=== PATIENT | female | born 1990 | race Caucasian/White ===

== ENCOUNTER 2016-07-23 13:12 | Emergency (ER) | payer OTHER ==
[~2016-07-23] VITALS: Ht 162.6 cm; Wt 48.1 kg
[2016-07-23 13:17] VITALS: TEMP 36.7; Ht 162.6 cm; Wt 48.1 kg
[2016-07-23] MEDS ORDERED: CLR10 PO (13:38)
--- NOTE | 2016-07-23 13:58 | EMERGENCY ROOM VISIT NOTE ---
History Report prepared by Darren: John Patricia Under the Supervision of: Dr. Gerry Denson M.D. First contact with patient: 13:32 Chief Complaint: ALLERGIC REACTION Stated Complaint: ITCHY,HARD TO BREATHE,SKIN BURNING History of Present Illness The patient is a 25 year old female who presents to the Emergency Room with complaints of an acute allergic reaction that started today while she was at work. The patient complains of itchy red skin. She also has some tightness in her chest and shortness of breath. The patient is not sure what she is having an allergic reaction to. She takes Joann daily, including this morning. The patient has allergies to dogs, certain feathers, and some medications. She denies the use of any new soaps or detergents. She notes that she started taking Flonase which is new for her. She has never followed up with an [employer]. Source of History: patient Onset: today Position: other (global) Quality: other (allergic reaction) Timing: other (acute) Associated Symptoms: + SOB, + chest pain Review of Systems All systems have been listed, reviewed, and are negative other than those previously mentioned. Please see Additional Medical History Sheet. Past Medical & Surgical Surgical Problems: (1) H/O: hysterectomy (2) S/P cholecystectomy Family History Cancer Gallbladder disease Social History Marital Status: in relationship Housing Status: lives with family Occupation Status: employed Current/Historical Medications Scheduled Loratadine (Claritin), 10 MG PO DAILY Allergies Coded Allergies: Codeine (Unverified Allergy, Intermediate, HIVES/DIZZY, 07/23/16) Meloxicam (Unverified Allergy, Intermediate, HIVES/DIZZY, 07/23/16) Sulfa Antibiotics (Unverified Allergy, Intermediate, HIVES/DIZZY, 07/23/16) Physical Exam Vital Signs Date Time Temp Pulse Resp B/P Pulse Ox O2 Delivery O2 Flow Rate FiO2 07/23/16 15:56 91 18 117/87 99 07/23/16 14:41 99 119/66 99 Room Air 07/23/16 14:28 99 Room Air 07/23/16 13:32 Room Air 98 07/23/16 13:29 108 07/23/16 13:29 92 131/87 98 Room Air 07/23/16 13:17 36.7 111 20 131/83 97 Room Air Physical Exam GENERAL: Patient awake, alert, oriented x 3. Patient follows commands. Patient does not appear toxic. Patient is adequately hydrated and well- nourished. SKIN: Skin is mildly erythematous and blanching. No urticaria. HEENT: Normal head, pupils equal, reactive to light and accommodation. Ears normal. Oral cavity and posterior pharynx appear normal. Uvula and tongue are not swollen. Neck: Without adenopathy, no neck vein distention. LUNGS: Wheezes noted bilaterally. HEART: No murmurs. No gallops. No rubs ABDOMEN: Soft, nontender. EXTREMITIES: No signs of trauma or infection. NEUROLOGIC: Cranial nerves II-XII within normal limits. No gross motor sensory function deficits. Medical Decision & Procedures Medications Administered Medications (Trade) Dose Ordered Sig/[place] Route Start Time Stop Time Status Last Admin Dose Admin Diphenhydramine HCl (Benadryl Cap) 50 mg NOW ONCE PO 07/23/16 14:30 07/23/16 14:31 DC 07/23/16 14:28 50 MG Albuterol (Ventolin Hfa Inhaler) 2 puffs NOW STAT INH 07/23/16 14:21 07/23/16 14:23 DC 07/23/16 14:27 2 PUFFS ED Course 1335: Past medical records reviewed. The patient was evaluated in room A2. A complete history and physical examination was performed. 1421: Albuterol 2 puffs INH. 1430: Benadryl 50 mg PO. 1535: The patient is feeling much better and is ready to go home. She is not wheezing at this time. Medical Decision Differential diagnosis includes allergic reaction with multiple possible allergens. The patient is here with some allergic symptoms but no anaphylaxis. The patient was given Benadryl and a Ventolin inhaler. She was observed and ultimately felt significantly better. The specific allergen causing her symptoms remains undetermined. The patient was encouraged to follow-up with an claims specialist. Impression Primary Impression: Allergic reaction Scribe Attestation The scribe's documentation has been prepared under my direction and personally reviewed by me in its entirety. I confirm that the note above accurately reflects all work, treatment, procedures, and medical decision making performed by me. Departure Information Dispostion Home / Self-Care Referrals Mumtaz Hoover D.O. (PCP) Forms HOME CARE DOCUMENTATION FORM, IMPORTANT VISIT INFORMATION, Work Instructions Patient Instructions ED Allergic Reaction General Other, My [facility] Additional Instructions 50 mg of Benadryl every 6 hours as needed for allergic symptoms. 2 puffs of Ventolin inhaler every 2-4 hours as needed for chest congestion/ wheezing. Follow-up with an claims specialist as soon as possible. Follow-up with your family physician. Off work today.
[2016-07-23] MEDS ORDERED: ALBUTEROL HFA 8 GM INHALER INH STA (14:21)
[2016-07-23 14:28] VITALS: O2SAT 99
[2016-07-23 15:56] VITALS: BP 117/87; PULSE 91; O2SAT 99
== END 2016-07-23 15:58 | disposition home or self-care (01) ==
LOC: C.EDB 13:14 → C.EDA 15:58
DX: T78.40XA Allergy, unspecified, initial encounter (principal); X58.XXXA Exposure to other specified factors, initial encounter; Y92.89 Other specified places as the place of occurrence of the external cause; Z90.710 Acquired absence of both cervix and uterus; Z90.49 Acquired absence of other specified parts of digestive tract; Z79.899 Other long term (current) drug therapy; Z88.2 Allergy status to sulfonamides; Z88.5 Allergy status to narcotic agent; Z88.8 Allergy status to other drugs, medicaments and biological substances; Z80.9 Family history of malignant neoplasm, unspecified; Z83.79 Family history of other diseases of the digestive system

== ENCOUNTER 2017-01-06 08:12 | Emergency (ER) | payer OTHER ==
[~2017-01-06] VITALS: Ht 162.6 cm; Wt 45.8 kg
[~2017-01-06 08:12] MED LIST: CLR10 PO
[2017-01-06 08:19] VITALS: TEMP 36.7; Ht 162.6 cm; Wt 45.8 kg
[2017-01-06] MEDS ORDERED: METHYLPREDNISOLONE 125 MG VIAL IV STA (08:29)
[2017-01-06] MEDS ORDERED: ALBUT/IPRATROP 3MG/0.5MG NEB 3 ML VIAL INH ONE (08:30)
[2017-01-06] MEDS ORDERED: SODIUM CHLORIDE 0.9% 1000ML 1,000 ML IV STA (08:31)
--- NOTE | 2017-01-06 08:34 | EMERGENCY ROOM VISIT NOTE ---
History Report prepared by Darren: Nehal Brand Under the Supervision of: Dr. Jose David Betts M.D. First contact with patient: 08:24 Chief Complaint: RESPIRATORY PROBLEMS Stated Complaint: TROUBLE BREATHING History of Present Illness The patient is a 26 year old female who presents to the Emergency Room with complaints of constant respiratory problems for the past week. The patient was diagnosed with an URI and is currently on clarithromycin and Tessalon Perles. She was told that she could return to work today. The patient went to work this morning and became extremely short of breath, lightheaded, and dizzy. She felt as though she could not breathe. She denies cough and LOC. She uses an inhaler for her severe allergies. She rates her pain as a 6/10 in severity. Source of History: patient Onset: 1 week ago Position: chest (respiratory) Symptom Intensity: 6/10 Timing: constant Associated Symptoms: + SOB, No LOC, No cough Note: Pt notes lightheadedness and dizziness. Review of Systems See HPI for pertinent positives & negatives. A total of 10 systems reviewed and were otherwise negative. Past Medical & Surgical Surgical Problems: (1) H/O: hysterectomy (2) S/P cholecystectomy Family History Cancer Gallbladder disease Social History Smoking Status: Former Smoker Marital Status: in relationship Housing Status: lives with family Occupation Status: employed Current/Historical Medications Scheduled Azithromycin (Zithromax), 500 MG PO Q12 Prednisone (Prednisone Tab), 0 PO DAILY Scheduled PRN Benzonatate (Tessalon Perles), 100 MG PO TID PRN for Cough Allergies Coded Allergies: Codeine (Unverified Allergy, Intermediate, HIVES/DIZZY, 07/23/16) Meloxicam (Unverified Allergy, Intermediate, HIVES/DIZZY, 07/23/16) Sulfa Antibiotics (Unverified Allergy, Intermediate, HIVES/DIZZY, 07/23/16) Physical Exam Vital Signs Date Time Temp Pulse Resp B/P (MAP) Pulse Ox O2 Delivery O2 Flow Rate FiO2 01/06/17 10:36 110 20 107/65 100 01/06/17 09:08 95 Room Air 01/06/17 09:08 95 Room Air 01/06/17 09:05 100 01/06/17 08:57 88 12 97 Room Air 01/06/17 08:22 97 Room Air 01/06/17 08:19 36.7 102 17 121/68 98 Room Air Physical Exam GENERAL: Patient is a healthy-appearing well-nourished 26 year old female. HEAD: Normocephalic atraumatic EYES: Ocular movements intact pupils equal and react to light OROPHARYNX mucous membranes are moist no exudates present no erythema or edema present NECK: Supple no nuchal rigidity CHEST: Good equal expansion LUNGS: Bilateral wheezing CARDIAC: Normal S1 and S2 ABDOMEN: Soft nontender no guarding BACK: No CVA tenderness EXTREMITIES: No pain upon palpation normal muscle strength in all groups no clubbing cyanosis or edema NEURO: Patient is following commands and answering questions appropriately. Alert and oriented x3 Cranial Nerves 2-12 grossly intact Medical Decision & Procedures ER Provider Diagnostic Interpretation: Radiology results as stated below per my review and radiologist interpretation: CHEST ONE VIEW PORTABLE HISTORY: 26 years-old Female Pt c/o SOB acute shortness of breath. Initial exam. COMPARISON: None available. TECHNIQUE: Portable upright AP view of the chest FINDINGS: The cardiomediastinal and hilar silhouettes are within normal limits. There is no pneumothorax, pleural effusion or focal airspace consolidation. No overt pulmonary edema. Bones of the chest are grossly intact. IMPRESSION: No acute cardiopulmonary process. The above report was generated using voice recognition software. It may contain grammatical, syntax or spelling errors. Electronically signed by: Ebenezer Terrell M.D. 01/06/2017 9:40 AM Dictated Date/Time: 01/06/2017 9:38 AM Laboratory Results 01/06/17 08:40 Red Blood Count 4.52, Mean Corpuscular Volume 91.4, Mean Corpuscular Hemoglobin 32.1, Mean Corpuscular Hemoglobin Concent 35.1, Mean Platelet Volume 9.0, Neutrophils (%) (Auto) 64.4, Lymphocytes (%) (Auto) 26.7, Monocytes (%) (Auto) 6.8, Eosinophils (%) (Auto) 1.6, Basophils (%) (Auto) 0.1, Neutrophils # (Auto) 4.38, Lymphocytes # (Auto) 1.82, Monocytes # (Auto) 0.46, Eosinophils # (Auto) 0.11, Basophils # (Auto) 0.01 01/06/17 08:40 Test 01/06/17 08:40 01/06/17 09:14 White Blood Count 6.81 K/uL (4.8-10.8) Red Blood Count 4.52 M/uL (4.2-5.4) Hemoglobin 14.5 g/dL (12.0-16.0) Hematocrit 41.3 % (37-47) Mean Corpuscular Volume 91.4 fL (80-100) Mean Corpuscular Hemoglobin 32.1 pg (25-34) Mean Corpuscular Hemoglobin Concent 35.1 g/dl (32-36) Platelet Count 238 K/uL (130-400) Mean Platelet Volume 9.0 fL (7.4-10.4) Neutrophils (%) (Auto) 64.4 % Lymphocytes (%) (Auto) 26.7 % Monocytes (%) (Auto) 6.8 % Eosinophils (%) (Auto) 1.6 % Basophils (%) (Auto) 0.1 % Neutrophils # (Auto) 4.38 K/uL (1.4-6.5) Lymphocytes # (Auto) 1.82 K/uL (1.2-3.4) Monocytes # (Auto) 0.46 K/uL (0.11-0.59) Eosinophils # (Auto) 0.11 K/uL (0-0.5) Basophils # (Auto) 0.01 K/uL (0-0.2) RDW Standard Deviation 40.5 fL (36.4-46.3) RDW Coefficient of Variation 12.0 % (11.5-14.5) Immature Granulocyte % (Auto) 0.4 % Immature Granulocyte # (Auto) 0.03 K/uL (0.00-0.02) Anion Gap 3.0 mmol/L (3-11) Est Creatinine Clear Calc Drug Dose 72.1 ml/min Estimated GFR () 109.6 Estimated GFR (Non- 94.6 BUN/Creatinine Ratio 10.2 (10-20) Calcium Level 9.4 mg/dl (8.5-10.1) Total Bilirubin 0.4 mg/dl (0.2-1) Aspartate Amino Transf (AST/SGOT) 17 U/L (15-37) Alanine Aminotransferase (ALT/SGPT) 18 U/L (12-78) Alkaline Phosphatase 62 U/L (45-117) Total Protein 7.3 gm/dl (6.4-8.2) Albumin 4.0 gm/dl (3.4-5.0) Globulin 3.3 gm/dl (2.5-4.0) Albumin/Globulin Ratio 1.2 (0.9-2) Influenza Type A (RT-PCR) Neg for Influ A (NEG) Influenza Type A Antigen Neg for Influ A (NEG) Influenza Type B Antigen Neg for Influ B (NEG) Influenza Type B (RT-PCR) Neg for Influ B (NEG) Labs reviewed by ED physician. Medications Administered Medications (Trade) Dose Ordered Sig/[place] Route Start Time Stop Time Status Last Admin Dose Admin Albuterol/ Ipratropium (Duoneb) 12 ml ONE ONCE INH 01/06/17 08:30 01/06/17 08:31 DC 01/06/17 08:56 12 ML Methylprednisolone Sodium Succinate (Solu-Medrol IV) 125 mg NOW STAT IV 01/06/17 08:29 01/06/17 08:31 DC 01/06/17 09:07 125 MG Sodium Chloride 1,000 ml @ 999 mls/hr Q1H1M STAT IV 01/06/17 08:31 01/06/17 09:31 DC 01/06/17 09:07 999 MLS/HR ECG Indication: SOB/dyspnea Rate (beats per minute): 88 Rhythm: normal sinus Findings: no acute ischemic change, no ectopy ED Course 0824: Past medical records reviewed. The patient was evaluated in room A2. A complete history and physical examination was performed. 0829: Solu-Medrol 125 mg IV 0830: Duoneb 12 ml INH 0831: NSS 1000 ml @ 999 mls/hr IV 0951: I reassessed the patient at this time. She is feeling better and resting comfortably. I discussed the results and treatment plan with the patient. I answered all pertaining questions that she had. She expressed understanding and verbalized agreement. The patient will be discharged home. Medical Decision Differential diagnosis: Etiologies such as infections, reactive airway disease, pneumonia, pneumothorax , COPD, CHF, cardiac ischemia, pulmonary embolism, musculoskeletal, gastrointestinal, as well as others were entertained. This is a 26-year-old female who presents emergency department complaining of bronchitis-like symptoms. The patient is wheezing on examination. The patient was given an hour-long breathing treatment and started on Solu-Medrol. She does not have an elevation in her white blood cell count and does not appear to be in any distress. The patient also does not have any evidence of pneumonia on chest x-ray. Based on these findings I felt that the patient was well enough to be discharged home for follow-up with her primary care physician. Patient will be placed on a prednisone taper and was in agreement with the treatment plan. Medication Reconcilliation Current Medication List: was personally reviewed by me Blood Pressure Screening Patient's blood pressure: Normal blood pressure Impression Primary Impression: Bronchitis Scribe Attestation The scribe's documentation has been prepared under my direction and personally reviewed by me in its entirety. I confirm that the note above accurately reflects all work, treatment, procedures, and medical decision making performed by me. Departure Information Dispostion Home / Self-Care Prescriptions Prednisone (Prednisone Tab) 20 Mg Tab 0 PO DAILY, #7 TAB 2 TABS DAILY FOR 2 DAYS, THEN 1 TAB DAILY FOR 2 DAYS, THEN 1/2 TAB DAILY FOR 2 DAYS. Prov: Jose David Betts MD 01/06/17 Referrals Mumtaz Hoover D.O. (PCP) Forms HOME CARE DOCUMENTATION FORM, IMPORTANT VISIT INFORMATION, WORK / SCHOOL INSTRUCTIONS Patient Instructions Bronchitis Acute, My [facility] Additional Instructions Use inhaler twice every 6 hours You have been examined and treated today on an emergency basis only. This is not a substitute for, or an effort to provide, complete comprehensive medical care. It is impossible to recognize and treat all injuries or illnesses in a single emergency department visit. It is therefore important that you follow up closely with Dr Rico. Call as soon as possible for an appointment. Thank you for your time and consideration. I look forward to speaking with you again soon. Please don't hesitate to call us if you have any questions.
[2017-01-06] MEDS ORDERED: BENZ100C84 PO (08:41)
[2017-01-06] MEDS ORDERED: AZIT500T26 PO (08:41)
[2017-01-06 08:57] VITALS: PULSE 88; O2SAT 97
[2017-01-06 08:59] LABS: BASO % 0.1 %; BASO ABS # 0.01 K/uL (0-0.2); COMPLETE YES; EOS % 1.6 %; HEMATOCRIT 41.3 % (37-47); IG% 0.4 %; LYMPH % 26.7 %; LYMPH ABS # 1.82 K/uL (1.2-3.4); MEAN CELL VOLUME 91.4 fL (80-100); MEAN CORPUSCULAR HEMOGLOBIN 32.1 pg (25-34); MEAN CORPUSCULAR HGB CONC 35.1 g/dl (32-36); MONO % 6.8 %; NEUT % 64.4 %; PLATELET COUNT 238 K/uL (130-400); RED BLOOD COUNT 4.52 M/uL (4.2-5.4); WHITE BLOOD COUNT 6.81 K/uL (4.8-10.8)
[2017-01-06 09:08] VITALS: O2SAT 95
[2017-01-06 09:13] LABS: BUN/CREATININE RATIO 10.2 (10-20); CALCIUM 9.4 mg/dl (8.5-10.1); CREATININE 0.84 mg/dl (0.60-1.20); POTASSIUM 4.1 mmol/L (3.5-5.1)
[2017-01-06 09:16] LABS: ALB/GLOB RATIO 1.2 (0.9-2)
--- NOTE | 2017-01-06 09:41 | DIAGNOSTIC IMAGING REPORT ---
CHEST ONE VIEW PORTABLE HISTORY: 26 years-old Female Pt c/o SOB acute shortness of breath. Initial exam. COMPARISON: None available. TECHNIQUE: Portable upright AP view of the chest FINDINGS: The cardiomediastinal and hilar silhouettes are within normal limits. There is no pneumothorax, pleural effusion or focal airspace consolidation. No overt pulmonary edema. Bones of the chest are grossly intact. IMPRESSION: No acute cardiopulmonary process. The above report was generated using voice recognition software. It may contain grammatical, syntax or spelling errors. Electronically signed by: Ebenezer Terrell M.D. 01/06/2017 9:40 AM Dictated Date/Time: 01/06/2017 9:38 AM
[2017-01-06] MEDS ORDERED: PRED20TA2 PO (09:55)
[2017-01-06 10:36] VITALS: BP 107/65; PULSE 110; O2SAT 100
[2017-01-06 12:00] LABS: INFLUENZA A PCR Neg for Influ A (NEG); INFLUENZA B PCR Neg for Influ B (NEG)
== END 2017-01-06 10:36 | disposition home or self-care (01) ==
LOC: C.EDB 08:13 → C.EDA 10:36
DX: J40 Bronchitis, not specified as acute or chronic (principal); Z87.891 Personal history of nicotine dependence